=== PATIENT | female | born 1935 | race Caucasian/White ===

== ENCOUNTER 2017-07-03 13:57 | Inpatient (IN) | payer OTHER ==
[~2017-07-03] VITALS: Ht 165.1 cm; Wt 67.1 kg
[2017-07-03] MEDS ORDERED: BISACODYL SUPP10 MG RECTAL (13:59)
[2017-07-03] MEDS ORDERED: MILK OF MA2400 MG/10 PO (13:59)
[2017-07-03] MEDS ORDERED: FLEET ENEMA133 ML PO (14:00)
[2017-07-03 14:01] VITALS: BP 122/75
[2017-07-03] MEDS ORDERED: LASIX 40 MG TAB40 M2 PO (14:01)
[2017-07-03] MEDS ORDERED: MIRALAX17 GM PO (14:01)
[2017-07-03] MEDS ORDERED: PRAVACHOL40 MG PO (14:01)
[2017-07-03] MEDS ORDERED: TYLENOL325 MG PO (14:01)
[2017-07-03] MEDS ORDERED: ELIQUIS5 MG PO (14:02)
[2017-07-03] MEDS ORDERED: PROTONIX40 M1 PO (14:02)
[2017-07-03] MEDS ORDERED: IRON325 PO (14:02)
[2017-07-03] MEDS ORDERED: OXYCONTIN10 M1 PO (14:03)
[2017-07-03] MEDS ORDERED: SYNTHROID75 MCG PO (14:04)
[2017-07-03] MEDS ORDERED: HYDROCORTISONE30 G9 TOP (14:04)
[2017-07-03] MEDS ORDERED: TOPROL XL100 MG PO (14:04)
[2017-07-03] MEDS ORDERED: VITAMIN C500 M2 PO (14:05)
[2017-07-03] MEDS ORDERED: LACTULOSE20 GM/30 M PO (14:05)
[2017-07-03] MEDS ORDERED: CENTRUM SILVER1 EAC2 PO (14:05)
[2017-07-03] MEDS ORDERED: MELATONIN3 MG PO (14:06)
[2017-07-03] MEDS ORDERED: MICONAZOLE NITR45 G3 TOP (14:07)
[2017-07-03 14:51] LABS: ABSOLUTE BASOPHILS 0.1 thou/uL (0.0-0.2); ABSOLUTE EOSINOPHILS 0.3 thou/uL (0.0-0.7); ABSOLUTE LYMPHOCYTES 1.8 thou/uL (0.8-5.3); ABSOLUTE MONOCYTES 0.6 thou/uL (0.0-1.2); ABSOLUTE NEUTROPHILS 4.3 thou/uL (1.6-8.1); BASOPHILS 0.9 %; EOSINOPHILS 4.8 %; HEMATOCRIT 35.4 % (37.0-47.0); HEMOGLOBIN 11.4 gm/dL (12.0-15.0); LYMPHOCYTES 25.5 %; MCHC 32.3 g/dL (28.0-37.0); MCV 89.6 fL (80.0-100.0); MONOCYTES 8.9 %; NUCLEATED RBCS 0 /100WBC; PLATELET COUNT* 308 thou/uL (150-400); POLYS 59.9 %; RBC 3.95 mil/uL (4.20-5.00); RDW-CV 33.4 % (10.5-14.5); WBC 7.2 thou/uL (4.0-11.0)
[2017-07-03 14:54] LABS: ANION GAP 8 mmol/L (7-16); BUN 25 mg/dL (7-18); CALCIUM 8.8 mg/dL (8.5-10.1); CHLORIDE 99 mmol/L (98-107); CO2 31 mmol/L (21-32); CREATININE 0.8 mg/dL (0.6-1.3); GLUCOSE 136 mg/dL (70-99); POTASSIUM 3.7 mmol/L (3.5-5.1); SODIUM 138 mmol/L (136-145)
[2017-07-03 15:01] LABS: ALBUMIN 3.5 g/dL (3.4-5.0); ALKALINE PHOSPHATASE 87 U/L (46-116); SGOT 24 U/L (15-37); SGPT 16 U/L (30-65); TOTAL BILIRUBIN 0.8 mg/dL (<0.1-1.0); TOTAL PROTEIN 7.6 g/dL (6.4-8.2); TROPONIN-I LEVEL <0.06 ng/mL (<0.06)
[2017-07-03 16:03] LABS: PLATELET ESTIMATE ADEQUATE
[2017-07-03 16:05] LABS: POIKILOCYTOSIS 1+
[2017-07-03 16:06] LABS: ANISOCYTOSIS 3+; HYPOCHROMASIA Occasional
[2017-07-03 16:07] LABS: MICROCYTES Occasional; OVALOCYTES 1+
[2017-07-03 16:08] LABS: POLYCHROMASIA Occasional
--- NOTE | 2017-07-03 17:20 | EKG ---
[place] [address] ELECTROCARDIOGRAM REPORT Name: ELISEO FONTANEZ Room: [place] [address] ADM IN [facility]#: [id number] Admission: 07/03/17 Attend Phys: Nazanin Samaniego Discharge: Date of : 39 Report #: [id number] THIS REPORT FOR: //name// [facility] ED Test Date: 2017-07-03 Test Time: 13:59:11 Pat Name: ELISEO FONTANEZ Department: Room: Gender: F Supervisor [employer]: [place] : 1935 Requested By: Peggy Ruvalcaba Order Number: [id number] MD: Arnulfo Vazquez Measurements Intervals [place] Rate: 105 P: SC: QRS: -55 QRSD: 108 T: 25 QT: 351 QTc: 465 Interpretive Statements Atrial fibrillation Left anterior fascicular block Abnormal R-wave progression, late transition No previous ECG available for comparison Electronically Signed On 07-03-2017 17:20:32 CDT by Arnulfo Vazquez [email or web address] <ELECTRONICALLY SIGNED> By: Arnulfo Vazquez MD, [facility] 07/03/17 1720 1359 1359 Arnulfo Vazquez MD, FAC /EPI
[2017-07-03 18:07] VITALS: BP 122/75
[2017-07-03 18:30] VITALS: BP 115/51
[2017-07-03 20:00] VITALS: BP 110/71
[2017-07-03 23:48] VITALS: BP 111/67
[2017-07-04 03:29] VITALS: BP 112/54
[2017-07-04 07:30] VITALS: BP 107/54
[2017-07-04 12:14] VITALS: BP 114/69
[2017-07-04 15:48] VITALS: BP 104/34
--- NOTE | 2017-07-04 16:06 | 2DMMODE ---
[place] [address] 2 D/M-MODE ECHOCARDIOGRAM Name: ELISEO FONTANEZ Room: [address] IN [facility]#: [id number] Admission: 07/03/17 Attend Phys: Zafar Gregg Discharge: Date of : 39 Date of Service: 07/04/17 1606 Report #: [id number] THIS REPORT FOR: //name// APPROVED REPORT Study performed: 07/04/2017 10:33:06 EXAM: Comprehensive 2D, Doppler, and color-flow Echocardiogram Patient Location: In-Patient Room #: 201 Status: routine BSA: 1.74 HR: 88 bpm BP: 112/54 mmHg Rhythm: Atrial Fibrillation Other Information Study Quality: Good Indications Congestive Heart Failure Atrial Fibrillation 2D Dimensions LVEF(%): 79.49 (>50%) IVSd: 14.09 (7-11mm) LVOT Diam: 18.28 (18-24mm) LVDd: 33.78 mm PWd: 13.38 (7-11mm) Ascending Ao: 29.52 (22-36mm) LVDs: 17.90 (25-40mm) Aortic Root: 28.86 mm Rodriguez's LVEF: 79.49 % Volumes Left Atrial Volume (Systole) LA ESV Index: 40.20 mL/m2 Aortic Valve AoV Peak Mirza.: 3.62 m/s AO Peak Gr.: 52.47 mmHg LVOT Max P.57 mmHg AO Mean Gr.: 32.53 mmHg LVOT Mean P.18 mmHg LVOT Max V: 1.07 m/s AO V2 VTI: 76.44 cm LVOT Mean V: 0.68 m/s ALEIDA (VTI): 0.76 cm2 LVOT V1 VTI: 22.09 [place] [address] 2 D/M-MODE ECHOCARDIOGRAM Name: ELISEO FONTANEZ Room: [address] IN ..#: [id number] Admission: 07/03/17 Attend Phys: Zafar Gregg Discharge: Date of : 39 Date of Service: 07/04/17 1606 Report #: [id number] MV Mean Gr.: 6.24 mmHg E/A Ratio: 2.40 MV Decel. Time: 161.02 ms MV E Max Mirza.: 2.00 m/s MV PHT: 46.70 ms MVA (PHT): 4.71 cm2 TDI E/Lateral E': 22.22 E/Medial E': 33.33 Medial E' Mirza.: 0.06 m/s Lateral E' Mirza.: 0.09 m/s Pulmonary Valve PV Peak Mirza.: 1.05 m/s PV Peak Gr.: 4.37 mmHg Tricuspid Valve TR Peak Gr.: 35.70 mmHg RVSP: 40.00 mmHg Left Ventricle The left ventricle is normal size. There is normal LV segmental wall motion. Moderate concentric left ventricular hypertrophy. Left ventricular systolic function is normal. The left ventricular ejection fraction is within the normal range. LVEF is 65%. This study is not technically sufficient to allow evaluation of the LV diastolic function due to atrial fibrillation. Right Ventricle Right ventricle is borderline dilated. The right ventricular systolic function is normal. Atria Left atrium is moderately dilated. Right atrium is mildly dilated. Aortic Valve Severe aortic valve sclerosis. Trace aortic regurgitation. Moderate to severe aortic stenosis. Mitral Valve Severe mitral annular calcification. Mild mitral regurgitation. No evidence of mitral valve stenosis. Tricuspid Valve The tricuspid valve is normal in structure. Moderate tricuspid regurgitation. The RVSP is 40-45 [place] [address] 2 D/M-MODE ECHOCARDIOGRAM Name: ELISEO FONTANEZ Room: [address]#: [id number] Admission: 07/03/17 Attend Phys: Zafar Gregg Discharge: Date of : 39 Date of Service: 07/04/17 1606 Report #: [id number] The pulmonary valve is normal in structure. Mild pulmonic regurgitation. Great Vessels The aortic root is normal in size. IVC is normal in size and collapses with >50% inspiration Pericardium There is no pericardial effusion. <Conclusion> The left ventricle is normal size. Moderate concentric left ventricular hypertrophy. Left ventricular systolic function is normal. The left ventricular ejection fraction is within the normal range. LVEF is 65%. This study is not technically sufficient to allow evaluation of the LV diastolic function due to atrial fibrillation. Left atrium is moderately dilated. Right atrium is mildly dilated. Severe aortic valve sclerosis. Trace aortic regurgitation. Moderate to severe aortic stenosis. Severe mitral annular calcification. Mild mitral regurgitation. Moderate tricuspid regurgitation. The RVSP is 40-45 mmHg. IVC is normal in size and collapses with >50% inspiration There is no pericardial effusion. There is normal LV segmental wall motion. <ELECTRONICALLY SIGNED> By: Lance Peña MD, FACC 07/04/17 1606 1606 1606 Lance Peña MD, FACC /INF
[2017-07-04 20:00] VITALS: BP 105/54
[2017-07-05] VITALS: BP 113/56
[2017-07-05 04:00] VITALS: BP 111/71
[2017-07-05 08:00] VITALS: BP 120/74
[2017-07-05 11:45] VITALS: BP 104/59
--- NOTE | 2017-07-05 16:55 | CARDNUC ---
[place] [address] CARDIAC NUCLEAR IMAGING REPORT Name: ELISEO FONTANEZ Room: [address] IN [facility]#: [id number] Admission: 07/03/17 Attend Phys: Zafar Gregg Discharge: Date of : 39 Date of Service: 07/05/17 1654 Report #: [id number] THIS REPORT FOR: //name// APPROVED REPORT Study performed: 07/05/2017 08:24:00 Exam: Nuclear Stress Test Indication: chest pain, chf, a fib Patient Location: In-Patient Room #: 201 Stress Tech: Adilia Vazquez Stress Nurse: Jenn Otoole RN Ht: 5 ft 5 in Wt: 150 lbs BSA: 1.75 m2 BMI: 24.95 Medical History Medical History: cad, pci, chf, a fib Medications: apixaban, furosemide, metoprolol, atorvastatin Allergies: penicillin, sulfa, iodine, codeine, erythromycin Cardiac Risk Factors: age, hyperlipidemia, hypertension, family hx Previous Cardiac Procedures: pci with stent Exercise History: Sedentary Meds Held (24 hrs): metoprolol Stress Test Details Stress Test: Pharmacologic stress testing performed using 0.4 mg of regadenoson per 5 mL given IV over 10 seconds. Reason for pharmacologic stress test: physical limitation. Reversal agent Aminophyline 50 mg, given intravenously for tachycardia. HR Resting HR: 96 bpm Max Heart Rate (APMHR): 141 bpm Max HR Achieved: 132 bpm Target HR (85% APMHR): 119 bpm % of APMHR: 93 Recovery HR: 119 bpm HR response to stress: Normal HR response to stress BP Resting BP: 102/73 mmHg Max BP: 129/63 [place] [address] CARDIAC NUCLEAR IMAGING REPORT Name: ELISEO FONTANEZ Room: [address]#: [id number] Admission: 07/03/17 Attend Phys: Zafar Gregg Discharge: Date of : 39 Date of Service: 07/05/17 1654 Report #: [id number] BP response to stress: Normal blood pressure response to stress. ECG Resting ECG: afib Stress ECG: Atrial Fibrillation ST Change: None Recovery ECG: afib Recovery ST Change: None Clinical Reason for Termination: Completed protocol Stress Symptoms: none Exercise duration: 0 min sec Exercise capacity: 1 METs Functional Aerobic Impairment 94% Stress ECG Conclusion no ecg changes NM EXAM: Myocardial Perfusion REST/STRESS Imaging Protocol: Rest Tc-99m/Stress Tc-99m 1 day Resting Data Rest SPECT myocardial perfusion imaging was performed in supine position 30 minutes following the intravenous injection of 10.1 mCi of Tc-99m Sestamibi. Time of rest injection: 1355 The images were gated to evaluate regional wall motion and calculate left ventricular ejection fraction. Administration Route: IV Administration Site: Left Wrist Pharmacologic Stress Pharmacologic stress test was performed by injecting Regadenoson 0.4 mg IV push followed by the intravenous injection of 36.0 mCi of Tc-99m Sestamibi. Time of stress injection: 1520 Administration Route: IV Administration Site: Left Wrist Heart Rate at time of stress injection: 132 bpm. Gated Stress SPECT was performed 40 minutes after stress injection. The images were gated to evaluate regional wall motion and calculate left ventricular ejection fraction[place] [address] CARDIAC NUCLEAR IMAGING REPORT Name: ELISEO FONTANEZ Room: [address] IN [facility]#: [id number] Admission: 07/03/17 Attend Phys: Zafar Gregg Discharge: Date of : 39 Date of Service: 07/05/17 1654 Report #: [id number] Study: Fair Artifact: Moderate Increased GI uptake Lung Uptake: Normal Study Data At rest, the left ventricular ejection fraction was 70%.. Post stress, the left ventricular ejection was >75%.. SSS: 0 SRS: 0 SDS: 0 TID = 1.03. Perfusion The SPECT images reveal a diffuse mild reduction of tracer uptake in all segments, on stress dataset only, which has on the rotating images more motion and gut uptake. The rest SPECT images are normal. No prone images were able to be obtained.Likely the perfusion abnormalith is artifact. Images were reviewed using [employer]. Wall Motion normal in all segments Nuclear Conclusion ECG Findings: negative for ischemia Clinical Findings: negative for ischemia Nuclear Findings: negative for ischemia Exercise Capacity: not assessed Left Ventricular Function: normal Risk Study: low Negative perfusion nuclear stress test for ischemia, defects are present but likely due to artifact. <Conclusion> no ecg changes <ELECTRONICALLY SIGNED> By: Steven Choudhary MD, FACC 07/05/17 1654 53 165 Steven Choudhary MD, FACC /INF
[2017-07-05 20:00] VITALS: BP 93/51
[2017-07-06] VITALS: BP 103/62
[2017-07-06 04:00] VITALS: BP 125/54
[2017-07-06 09:00] VITALS: BP 100/62
[2017-07-06 12:22] VITALS: BP 102/53
[2017-07-06 16:07] VITALS: BP 117/71
[2017-07-06 20:00] VITALS: BP 117/63
[2017-07-07 00:39] VITALS: BP 98/63
[2017-07-07 04:23] VITALS: BP 103/46
[2017-07-07 07:30] VITALS: BP 126/74
[2017-07-07 12:29] VITALS: BP 120/77
[2017-07-07 17:24] VITALS: BP 119/68
[2017-07-07 20:00] VITALS: BP 113/56
[2017-07-08] VITALS: BP 121/73
[2017-07-08 04:00] VITALS: BP 113/66
[2017-07-08 07:30] VITALS: BP 118/72
[2017-07-08 15:07] VITALS: BP 96/63
[2017-07-08 20:00] VITALS: BP 109/75
[2017-07-09 08:00] VITALS: BP 103/67
[2017-07-09 11:29] LABS: CALCIUM 8.9 mg/dL (8.5-10.1); CREATININE 0.7 mg/dL (0.6-1.3)
[2017-07-09 17:33] VITALS: BP 109/67
[2017-07-09 20:00] VITALS: BP 112/62
[2017-07-10 04:30] LABS: CALCIUM 8.5 mg/dL (8.5-10.1); CREATININE 0.6 mg/dL (0.6-1.3); POTASSIUM 3.7 mmol/L (3.5-5.1)
[2017-07-10 08:00] VITALS: BP 116/46
== END 2017-07-10 16:45 | DRG 308 ==
LOC: M.ERS 13:57 → M.2W 16:07 → M.TBA-ER 16:07 → M.2W 18:01 → M.ORTHSURG 07-08 14:40
PROVIDERS: Nurse Practitioner Family; Personal Emergency Response Attendant; ADMIT Internal Medicine
DX: I48.2 Chronic atrial fibrillation (principal); I50.33 Acute on chronic diastolic (congestive) heart failure; D68.69 Other thrombophilia; I07.1 Rheumatic tricuspid insufficiency; I35.0 Nonrheumatic aortic (valve) stenosis; I05.0 Rheumatic mitral stenosis; Z88.0 Allergy status to penicillin; Z88.2 Allergy status to sulfonamides; Z88.6 Allergy status to analgesic agent; Z88.1 Allergy status to other antibiotic agents; Z91.041 Radiographic dye allergy status; Z79.01 Long term (current) use of anticoagulants; Z79.899 Other long term (current) drug therapy

== ENCOUNTER 2018-10-10 10:32 | Inpatient (IN) | payer OTHER ==
[~2018-10-10] VITALS: Ht 160 cm; Wt 67.7 kg
[~2018-10-10 10:32] MED LIST: BISACODYL SUPP10 MG RECTAL; CENTRUM SILVER1 EAC2 PO; ELIQUIS5 MG PO; FLEET ENEMA133 ML PO; HYDROCORTISONE30 G9 TOP; IRON325 PO; LACTULOSE20 GM/30 M PO; LASIX 40 MG TAB40 M2 PO; MELATONIN3 MG PO; MICONAZOLE NITR45 G3 TOP; MILK OF MA2400 MG/10 PO; MIRALAX17 GM PO; OXYCONTIN10 M1 PO; PRAVACHOL40 MG PO; PROTONIX40 M1 PO; SYNTHROID75 MCG PO; TOPROL XL100 MG PO; TYLENOL325 MG PO; VITAMIN C500 M2 PO
[2018-10-10 10:33] VITALS: BP 101/64
[2018-10-10] MEDS ORDERED: IPRAT-ALBUT 0.5-3 ML INH (10:43)
[2018-10-10] MEDS ORDERED: DOXYCYCLINE 10100 MG PO (10:44)
[2018-10-10] MEDS ORDERED: BUMETANIDE 1 MG1 M1 PO (10:46)
[2018-10-10] MEDS ORDERED: NYSTATIN100000 UNI SW&SWALLOW (10:51)
[2018-10-10] MEDS ORDERED: OMEPRAZOLE 20 M20 M1 PO (10:51)
[2018-10-10] MEDS ORDERED: XARELTO15 MG PO (10:52)
[2018-10-10 10:57] LABS: HEMOGLOBIN 10.2 gm/dL (12.0-15.0); MCH 25.4 pg (26.0-34.0)
[2018-10-10 11:00] LABS: ABSOLUTE BASOPHILS 0.1 thou/uL (0.0-0.2); ABSOLUTE EOSINOPHILS 0.2 thou/uL (0.0-0.7); ABSOLUTE LYMPHOCYTES 1.5 thou/uL (0.8-5.3); ABSOLUTE NEUTROPHILS 6.5 thou/uL (1.6-8.1); BASOPHILS 1.4 %; EOSINOPHILS 2.5 %; HEMATOCRIT 32.4 % (37.0-47.0); LYMPHOCYTES 15.5 %; MCHC 31.6 g/dL (28.0-37.0); MCV 80.3 fL (80.0-100.0); MONOCYTES 10.7 %; MPV 7.6 fl. (7.2-11.1); NUCLEATED RBCS 0 /100WBC; PLATELET COUNT* 414 thou/uL (150-400); POLYS 69.9 %; RBC 4.04 mil/uL (4.20-5.00); RDW-CV 22.8 % (10.5-14.5); WBC 9.4 thou/uL (4.0-11.0)
[2018-10-10 11:08] LABS: ANION GAP 7 mmol/L (7-16); BUN 19 mg/dL (7-18); CALCIUM 8.1 mg/dL (8.5-10.1); CHLORIDE 102 mmol/L (98-107); CO2 25 mmol/L (21-32); CREATININE 0.8 mg/dL (0.6-1.3); GLUCOSE 93 mg/dL (70-99); INR 1.3; POTASSIUM 4.3 mmol/L (3.5-5.1); SODIUM 134 mmol/L (136-145)
[2018-10-10 11:19] LABS: ALBUMIN 2.9 g/dL (3.4-5.0); ALKALINE PHOSPHATASE 89 U/L (46-116); LIPASE 221 U/L (73-393); MAGNESIUM 1.6 mg/dL (1.8-2.4); NT-PRO BRAIN NAT PEPTIDE 3515 pg/mL (<300); SGOT 39 U/L (15-37); SGPT 29 U/L (30-65); TOTAL BILIRUBIN 0.5 mg/dL (<0.1-1.0); TOTAL PROTEIN 6.9 g/dL (6.4-8.2); TROPONIN-I LEVEL <0.06 ng/mL (<0.06)
[2018-10-10 14:26] VITALS: BP 106/55
[2018-10-10 14:30] VITALS: BP 119/45
[2018-10-10] MEDS ORDERED: SYNTHROID25 MC1 PO (15:16)
--- NOTE | 2018-10-10 18:03 | 2DMMODE ---
[place] [address] 2 D/M-MODE ECHOCARDIOGRAM Name: ELISEO FONTANEZ Room: [address] IN [facility]#: [id number] Admission: 10/10/18 Attend Phys: Zafar Gregg Discharge: Date of : 39 Date of Service: 10/10/18 180 Report #: [id number] THIS REPORT FOR: //name// APPROVED REPORT Study performed: 10/10/2018 15:46:12 EXAM: Comprehensive 2D, Doppler, and color-flow Echocardiogram Patient Location: In-Patient Room #: [facility] Status: routine BSA: 1.71 HR: 65 bpm BP: 106/55 mmHg Rhythm: Atrial Fibrillation Other Information Study Quality: Good Indications Atrial Fibrillation Chest Pain 2D Dimensions IVSd: 12.37 (7-11mm) LVOT Diam: 16.40 (18-24mm) LVDd: 29.88 mm PWd: 11.79 (7-11mm) Ascending Ao: 29.83 (22-36mm) LVDs: 18.24 (25-40mm) Aortic Root: 30.19 mm Volumes Left Atrial Volume (Systole) LA ESV Index: 47.50 mL/m2 Aortic Valve AoV Peak Mirza.: 3.75 m/s AO Peak Gr.: 56.19 mmHg LVOT Max P.09 mmHg AO Mean Gr.: 36.52 mmHg LVOT Mean P.81 mmHg LVOT Max V: 0.88 m/s AO V2 VTI: 88.79 cm LVOT Mean V: 0.64 m/s ALEIDA (VTI): 0.47 cm2 LVOT V1 VTI: 19.77 cm TDI Medial E' Mirza.: 0.05 m/s Lateral E' Mirza.: 0.06 m/[place] [address] 2 D/M-MODE ECHOCARDIOGRAM Name: ELISEO FONTANEZ Room: [address] IN [facility]#: [id number] Admission: 10/10/18 Attend Phys: Zafar Gregg Discharge: Date of : 39 Date of Service: 10/10/18 1802 Report #: [id number] Pulmonary Valve PV Peak Mirza.: 1.11 m/s PV Peak Gr.: 4.96 mmHg Tricuspid Valve RAP Estimate: 5.00 mmHg TR Peak Gr.: 54.58 mmHg RVSP: 59.00 mmHg PA Pressure: 59.00 mmHg Left Ventricle The left ventricle is normal size. There is normal LV segmental wall motion. Mild concentric left ventricular hypertrophy. Left ventricular systolic function is normal. LVEF is 65-70%. This study is not technically sufficient to allow evaluation of the LV diastolic function due to atrial fibrillation. Right Ventricle Right ventricle is mildly dilated. The right ventricular systolic function is normal. Atria Left atrium is severely dilated. Right atrium is moderately dilated. Aortic Valve Severe aortic valve sclerosis. No aortic regurgitation is present. Severe aortic stenosis. Mitral Valve Moderate mitral annular calcification. Mild mitral regurgitation. No evidence of mitral valve stenosis. Tricuspid Valve The tricuspid valve is normal in structure. Moderate tricuspid regurgitation. Moderate pulmonary hypertension. Pulmonic Valve The pulmonary valve is normal in structure. Mild pulmonic regurgitation. Great Vessels The aortic root is normal in size. IVC is normal in size and collapses >50% with inspiration. Pericardium There [place] [address] 2 D/M-MODE ECHOCARDIOGRAM Name: ESTEEELISEO Marianne Room: [address] IN [facility].#: [id number] Admission: 10/10/18 Attend Phys: Zafar Gregg Discharge: Date of : 39 Date of Service: 10/10/18 1802 Report #: [id number] <Conclusion> The left ventricle is normal size. Mild concentric left ventricular hypertrophy. Left ventricular systolic function is normal. LVEF is 65-70%. There is normal LV segmental wall motion. Right ventricle is mildly dilated. Left atrium is severely dilated. Right atrium is moderately dilated. Severe aortic valve sclerosis. Severe aortic stenosis. Moderate mitral annular calcification. Mild mitral regurgitation. Moderate tricuspid regurgitation. Moderate pulmonary hypertension. Mild pulmonic regurgitation. IVC is normal in size and collapses >50% with inspiration. <ELECTRONICALLY SIGNED> By: Sammy Murphy MD, FACC 10/10/181801 01 01 Sammy Murphy MD, FACC /INF
--- NOTE | 2018-10-10 18:11 | NUR ---
PT ARRIVED TO ROOM 228 AT APPROX 1410, PT VERY DROWSY ON ARRIVAL. WAS ABLE TO DO ADMISSION, PT NOT A VERY GOOD HISTORIAN THOUGH. PT DENIES PAIN BUT STATES "I WONDER WHAT IS WRONG WITH ME". PT INCONTINANT OF URINE. ON 2L PER PROTOCOL. AFIB ON THE MONITOR. FALL PRECAUTIONS IN PLACE. WILL CONTINUE WITH PLAN OF CARE.
[2018-10-10 20:00] VITALS: BP 118/68
[2018-10-10 22:07] LABS: URINE BILIRUBIN NEGATIVE (Negative); URINE BLOOD 2+ (Negative); URINE CLARITY CLEAR; URINE COLOR YELLOW; URINE GLUCOSE-RANDOM NEGATIVE (Negative); URINE KETONES NEGATIVE (Negative); URINE LEUKOCYTES 2+ (Negative); URINE NITRITE POSITIVE (Negative); URINE PROTEIN NEGATIVE (Negative)
[2018-10-10 22:23] LABS: SQUAMOUS 0-3 Few /LPF (0-3)
[2018-10-10 22:24] LABS: BACTERIA >30 Many /HPF (None Seen); CASTS None Seen /LPF (None Seen); CRYSTALS None Seen /LPF (None Seen); URINE RBC 0-2 Rare /HPF (0-2); URINE WBC 6-15 Few /HPF (0-5)
[2018-10-11] VITALS: BP 94/50
[2018-10-11 04:00] VITALS: BP 104/47
--- NOTE | 2018-10-11 07:32 | NUR ---
PT WAS ABLE TO REST THROUGH THE NIGHT. NO C/O PAIN UNTL DURING REPORT THIS AM C/O CHEST PAIN AND SOA. DAY RN NOTIFIED. TRACING AFIB WITH PVCS THROUGH THE NIGHT. SEE EMAR AND CHARTING. CALL LIGHT IN REACH/ HOURLY ROUNDNG FOR SAFETY.
[2018-10-11 08:00] VITALS: BP 113/57
[2018-10-11 10:25] LABS: CALCIUM 8.9 mg/dL (8.5-10.1); CREATININE 0.8 mg/dL (0.6-1.3); MAGNESIUM 1.9 mg/dL (1.8-2.4); POTASSIUM 4.7 mmol/L (3.5-5.1)
--- NOTE | 2018-10-11 11:09 | EKG ---
[place] [address] ELECTROCARDIOGRAM REPORT Name: ELISEO FONTANEZ Room: [address] ADM IN [facility].#: [id number] Admission: 10/10/18 Attend Phys: Nazanin Samaniego Discharge: Date of : 39 Report #: [id number] THIS REPORT FOR: //name// [facility] ED Test Date: 2018-10-10 Test Time: 10:37:04 Pat Name: ELISEO FONTANEZ Department: Room: [facility] Gender: F Director Educational Radio: : 1935 Requested By: Yanick Vail Order Number: [id number] MD: Arnulfo Vazquez Measurements Intervals [place] Rate: 90 P: [place]: QRS: -56 QRSD: 112 T: 19 QT: 383 QTc: 469 Interpretive Statements Atrial fibrillation left anterior fasicular block Compared to ECG 07/03/2017 13:59:11 rate slowed Electronically Signed On 10-11-2018 11:09:22 CDT by Arnulfo Vazquez [email or web address] <ELECTRONICALLY SIGNED> By: Arnulfo Vazquez MD, [facility] 10/11/18 1109 1037 1037 Arnulfo Vazquez MD, FACC /EPI
--- NOTE | 2018-10-11 12:19 | NUR ---
Nutrition: Pt assessed for pressure ulcer risk. Albumin 2.9. RD ordered Beneprotein for added nutrition. Admitted with chest pain, afib. H/o CHF. Current UTI, on Cipro. GOALS: good protein intake, good hydration for UTI. Mild risk.
[2018-10-11 12:24] VITALS: BP 104/63
--- NOTE | 2018-10-11 12:29 | NUR ---
MET WITH PT TO DISCUSS HOME SITUATION/DC PLANNING. PT NORMALLY LIVES WITH SPOUSE. SHE WAS ADMITTED FROM [facility]. PER BELÉN/JAIME, PT HAS BEEN THERE FOR A FEW DAYS, WAS ADMITTED FROM [place]. PLAN IS FOR PT TO RETURN TO [facility] [place]. PT HAS SOME CONFUSION. NO FAMILY IN ROOM AT THIS TIME. NO DPOA ON CHART. CM TO FOLLOW. FAXED CLINICAL TO [facility], THEY WILL NEED TO GET INSURANCE AUTH PRIOR TO DC TO SNF
--- NOTE | 2018-10-11 15:19 | EKG ---
[place] [address] ELECTROCARDIOGRAM REPORT Name: ELISEO FONTANEZ Room: [address] ADM IN .R.#: [id number] Admission: 10/10/18 Attend Phys: Nazanin Samaniego Discharge: Date of : 39 Report #: [id number] THIS REPORT FOR: //name// [facility] Test Date: 2018-10-11 Test Time: 14:37:14 Pat Name: ELISEO FONTANEZ Department: Room: [address] Gender: F Medical Director/Head Team Physician: : 1935 Requested By: Zafar Gregg Order Number: [id number] MD: Arnulfo Vazquez Measurements Intervals [place] Rate: 76 P: MD: QRS: -52 QRSD: 108 T: 37 QT: 400 QTc: 450 Interpretive Statements Atrial fibrillation left anterior fasicular block Compared to ECG 10/10/2018 10:37:04 no change Electronically Signed On 10-11-2018 15:19:40 CDT by Arnulfo Vazquez [email or web address] <ELECTRONICALLY SIGNED> By: Arnulfo Vazquez MD, [facility] 10/11/18 1519 1437 1437 Arnulfo Vazquez MD, FAC /EPI
[2018-10-11 15:29] LABS: CALCIUM 8.6 mg/dL (8.5-10.1); CREATININE 0.9 mg/dL (0.6-1.3); POTASSIUM 4.5 mmol/L (3.5-5.1); TOTAL BILIRUBIN 0.5 mg/dL (<0.1-1.0); TOTAL PROTEIN 7.1 g/dL (6.4-8.2)
[2018-10-11 15:50] VITALS: BP 101/51
[2018-10-11 20:00] VITALS: BP 110/61
[2018-10-12] VITALS: BP 98/52
[2018-10-12 04:00] VITALS: BP 103/61
[2018-10-12 08:00] VITALS: BP 111/65
--- NOTE | 2018-10-12 11:32 | NUR ---
Following for d/c planning needs. Reviewed chart and spoke with nurse, physician and brand coordinator at [facility]. [facility] admissions will seek auth from insurance for return today. Faxed referral. Will await return call re: bed availability and acceptance.
[2018-10-12 12:00] VITALS: BP 88/49
[2018-10-12 17:45] VITALS: BP 95/52
--- NOTE | 2018-10-12 18:17 | NUR ---
PT AFIB WITH PVC'S AND MURMURS NOTED THIS SHIFT. PT HAS COUGH NOTED AND COARSE LUNG SOUNDS THIS SHIFT. PT EDUCATED ON HOW TO USE IS AND ONE WAS PROVIDED AND LEFT AT HER BEDSIDE. PT EDUCATED TO SPIT OUT ANY PRODUCTIVE COUGH MUCUS POSSIBLE. PT IV PATENT AND INTACT AT THIS TIME. PT UP TO BATHROOM THIS SHIFT WITH THERAPY THIS SHIFT BUT NEEDS THE ASSISTANCE OF UP WITH 2 AND IS NOW USING BSC AND WALKER FOR SAFETY REASONS. PT HAS SCRATCH ON BOTTOM NOTED THIS SHIFT. PT USING O2 AT 2L PER NC FOR COMFORT. PT TOLERATING DIET AND HAS NOT HAD C/O PAIN THIS SHIFT. PT HAS SOME INCONTINENCE AND A BRIEF WAS REQUESTED BY PT. HOURLY ROUNDING MAINTAINED THIS SHIFT. WILL CONTINUE TO MONITOR AND ASSESS
[2018-10-12 23:45] VITALS: BP 115/43
[2018-10-13 03:30] VITALS: BP 101/56
--- NOTE | 2018-10-13 06:30 | NUR ---
PT A&O X3. FORGETFUL. VSS ON 2L. SAT WAS 100% ON 2L. I TURNED O2 DOWN TO 1L. PT SATTING FINE. ASSESSMENT DOCUMENTED. FALL PRECAUTION IN PLACE. MEDS GIVEN PER EMAR. RW SL. CALL LIGHT WITHIN REACH. HOURLY ROUNDINGS MADE. ANTICIPATED DC TO [facility] TODAY. WILL CONTINUE TO MONITOR.
[2018-10-13 11:27] VITALS: BP 96/46
[2018-10-13 15:43] VITALS: BP 103/45
[2018-10-13 20:00] VITALS: BP 108/48
[2018-10-14] VITALS: BP 101/61
[2018-10-14 04:00] VITALS: BP 118/47
--- NOTE | 2018-10-14 05:46 | NUR ---
ASSUMED CARE OF PT AFTER REPORT AT 1930. PT A&OX3. FORGETFUL. VSS. PHYSICAL ASSESSMENT COMPLETED AND CHARTED. PT ON O2 AT 2L NC. PT TRACING AFIB ON TELE. PT UPWITH 1 ASSIST TO BSC. PT WITH EPISODES OF INCONTINENT BLADDER. PT TURNED TO SIDES. PT COMPLAINED OF BACK PAIN BUT REFUSED MEDS. PT ABLE TO SLEEP WELL ON BED. CALL LIGHT WITHIN REACH,
[2018-10-14 08:00] VITALS: BP 99/40
--- NOTE | 2018-10-14 10:55 | CON ---
[facility] [address] [place] [address] CONSULTATION Name: ELISEO FONTANEZ Room: [address] IN [facility]#: [id number] Admission: 10/10/18 Attend Phys: Nazanin Samaniego Discharge: Date of : 39 Report #: [id number] THIS REPORT FOR: //name// CC: Lance Gregg CARDIOLOGY CONSULT INDICATION: Chest pain. HISTORY OF PRESENT ILLNESS: The patient is an 82-year-old white female who was transferred from [facility] for evaluation of chest pain. She is a poor historian. She apparently describes sharp, 10/10 chest discomfort with right upper quadrant discomfort, nausea and weakness. The patient had recent cardiac catheterization at [facility] where she was discovered to have moderate proximal LAD disease. A followup catheterization in an attempt to do FFR of this region was interrupted due to an episode of acute diastolic heart failure. The patient has severe/critical aortic stenosis. The patient had a balloon valvuloplasty of the aortic valve. The valve area prior to procedure was 0.32 cm2 consistent with critical aortic stenosis. Post procedure, the valve area was calculated to be 0.52 cm2, still consistent with severe aortic stenosis. At the time of my interview, the patient states she is still having some chest discomfort on direct questioning, possibly worse with deep inspiration. An echocardiogram today showed normal LV systolic function. She has dilated right and left atria as well as right ventricle. She has severe aortic stenosis. She has significant mitral annular calcification without mitral valvular stenosis. PAST MEDICAL HISTORY: Includes at least: 1. Severe aortic stenosis. 2. Diastolic heart failure. 3. Hypertension. 4. Hyperlipidemia. 5. Hypothyroidism. 6. Aortic valvuloplasty. 7. Appendectomy. 8. Chronic atrial fibrillation. 9. Chronic anticoagulation. FAMILY HISTORY: Apparently positive for heart disease in the brother and father. SOCIAL HISTORY: The patient is . She does not smoke. [place] [address] CONSULTATION Name: ELISEO FONTANEZ Room: [address]#: [id number] Admission: 10/10/18 Attend Phys: Nazanin Samaniego Discharge: Date of : 39 Report #: [id number] ALLERGIES: MULTIPLE ALLERGIES INCLUDING PENICILLIN, SULFA, IODINE, STRAWBERRIES, CODEINE, BACTRIM, RED DYE, SHELLFISH. HOME MEDICATIONS: Tylenol p.r.n., bisacodyl p.r.n., Bumex 1 mg p.o. daily, doxycycline 100 mg b.i.d., Combivent inhaler t.i.d., Synthroid 0.075 mg daily, Milk of Magnesia daily, metoprolol succinate 100 mg daily, Nystatin swish and swallow q.i.d., omeprazole 20 mg daily, pravastatin 40 mg daily, Xarelto 15 mg with dinner. REVIEW OF SYSTEMS: A 14-point review of systems is positive for chest discomfort, dyspnea on exertion, heart murmur, thyroid disease. She wears glasses without acute visual loss and dentures. Otherwise, 14-point review of systems was unremarkable. PHYSICAL EXAMINATION: VITAL SIGNS: Blood pressure 119/45, pulse in the 60s and irregular. GENERAL: This is a pleasant elderly female who does not appear to be in any distress. Mood and affect appropriate. HEENT: The patient is wearing glasses. Extraocular muscles intact. Mucous membranes moist. NECK: Shows no jugular venous distention. There is a cardiac murmur radiate into the carotids bilaterally. CHEST: Reveals clear lung almanzar. CARDIOVASCULAR: Reveals an irregularly irregular rhythm that is rate controlled. There is a grade 3/6 systolic ejection murmur. I do not appreciate gallop. ABDOMEN: Reveals normal bowel sounds. The abdomen is soft and nontender. EXTREMITIES: Shows no significant edema. Peripheral pulses slightly diminished. SKIN: Warm and dry. IMPRESSION AND RECOMMENDATIONS: 1. Severe aortic stenosis, status post recent valvuloplasty. Would continue following clinically at this time. 2. Coronary artery disease. The patient is having some chest discomfort, although I doubt this is acute coronary syndrome as her troponins have been negative x 3 sets here. Would continue conservative management at this time. 3. Dyslipidemia. Continue current statin agent. 4. Hypertension, adequately controlled on current regimen. 5. Chronic atrial fibrillation, adequately rate controlled. She is chronically anticoagulated with Xarelto, [place] [address] CONSULTATION Name: ROSAREBELELISEO Room: [address]#: [id number] Admission: 10/10/18 Attend Phys: Nazanin Samaniego Discharge: Date of : 39 Report #: [id number] From a cardiac standpoint, the patient appears stable. We will follow as needed. <ELECTRONICALLY SIGNED> By: Sammy Murphy MD, FACC 10/14/18 1055 [id number] Murphy MD, FACC /nt
[2018-10-14 12:00] VITALS: BP 98/53
[2018-10-14 16:00] VITALS: BP 101/61
--- NOTE | 2018-10-14 18:03 | NUR ---
RECEIVED PT FROM MARGARITO MCCORMICK. PT A+O X 3 WITH BASELINE CONFUSION. PT VSS, CONTROLLED AFIB NOTED, PT REPORTED PAIN IN MID BACK- TREATED WITH TYLENOL. PT INCONTINENT OF BLADDER. PT LAST BM 10/13/18. HOURLY ROUNDING PERFORMED, UNEVENTFUL DAY FOR PT, AWAITING INSURANCE AUTHORIZATION FOR [facility].
[2018-10-14 20:00] VITALS: BP 106/48
[2018-10-15] VITALS: BP 123/56
[2018-10-15 04:00] VITALS: BP 104/59
--- NOTE | 2018-10-15 04:34 | NUR ---
ASSUMED CARE OF PT AFTER REPORT AT 1930. PT A&OX3. FORGETFUL. VSS. PHYSICAL ASSESSMENT COMPLETED AND CHARTED. PT ON O2 AT 2L NC. PT TRACING AFIB ON TELE. PT UP WITH 1 ASSIST. PT WITH EPISODES OF INCONTINENT BLADDER. PT DENIES ANY PAIN OR DISCOMFORT. CALL LIGHT WITHIN REACH.
[2018-10-15 08:00] VITALS: BP 122/59
--- NOTE | 2018-10-15 10:53 | NUR ---
COSME followed up with Ne in admissions at [facility] to check on status of referral and insurance authorization. Ne had not received auth as of yet and will need updated therapy notes. The therapy evals were sent by pt nurse on Sunday but follow up notes more recent are required. SW to fax updated notes when available as needed. SW to continue to follow to assist in finalizing safe dc plan and SNF placement at dc pending insurance auth.
[2018-10-15 12:00] VITALS: BP 105/62
--- NOTE | 2018-10-15 14:43 | NUR ---
WOUND CARE NOTE: CONSULT RECEIVED FOR OPEN SORES ON BOTTOM. UPON ASSESSMENT, DID NOT OBSERVE ANY LESIONS. SKIN INTACT. WILL SIGN OFF AT THIS TIME, PLEASE RECONSULT IF NEEDED
[2018-10-15 16:00] VITALS: BP 97/67
[2018-10-15 20:00] VITALS: BP 106/51
[2018-10-16] VITALS: BP 123/63
--- NOTE | 2018-10-16 07:29 | NUR ---
PATIENT SLEPT PART OF THE NIGHT. PATIENT WAS VOIDING ON THE BEDPAN ABOUT EVERY 30 MINUTES TO AN HOUR FOR THE FIRST PART OF THE SHIFT. IV REMAINS SALINE LOCKED. PATIENT IS POSSIBLY GOING TO [facility] TODAY. WILL CONTINUE TO MONITOR.
[2018-10-16 08:00] VITALS: BP 112/64
--- NOTE | 2018-10-16 10:12 | NUR ---
Pt is medically stable for dc. Spoke with Ne at [facility], per insurance they did not receive the referral that was sent over the weekend, CM faxed new referral. Continue to await insurance auth.
[2018-10-16 11:12] VITALS: BP 103/64
--- NOTE | 2018-10-16 13:37 | NUR ---
VSS, ASSUMED CARE IN THE AM, ASSESSMENT PERFORMED AND CHARTED, FALL PRECAUTIONS IN PLACE AND CALL LIGHT IN REACH, PT IS A&O3 AND SHE IS FORGETFUL, PT DENIES ANY PAIN AT THIS TIME, PT IS TRACING AFIB ON THE MONITOR AND HAS A MURMER, PT IS UP WITH ONE AND WALKER TO [facility], PT IS TO DISCHARGE TO [facility] TODAY AT 4 PM, I HAVE CALLED REPORT AND PROVITED CALL [facility] NUMBER TO NURSE GABBI, IV AND TELE MONITOR HAVE BEEN REMOVED AND HOURLY ROUNDS COMPLTETED, DISCHARGE PAPERS COMPLETED AND WILL FOLLOW WITH PLAN OF CARE.
[2018-10-16] MEDS ORDERED: CIPRO500 MG PO (14:08)
[2018-10-16 14:12] VITALS: BP 103/64
--- NOTE | 2018-10-16 16:43 | NUR ---
VSS, ASSUMED CARE IN THE AM, ASSESSMENT PERFORMED AND CHARTED, FALL PRECAUTIONS IN PLACE AND CALL LIGHT IN REACH, PT IS A&O2-3 SHE IS FORGETFUL AND IS ON RA, SHE DENIES ANY PAIN AND IS INCONT OF BLADDER, ID IS TRACING AFIB ON THE MONITOR, PT GOAL IS TO D/C TO [facility], IV AND TELE ,OMITOR REMOVED
== END 2018-10-16 16:30 | DRG 689 ==
LOC: M.ERS 10:32 → M.TBA-ER 11:55 → M.2W 11:55
PROVIDERS: Emergency Medicine Emergency Medical Services; ADMIT Internal Medicine
DX: N39.0 Urinary tract infection, site not specified (principal); G93.41 Metabolic encephalopathy; I50.32 Chronic diastolic (congestive) heart failure; E44.0 Moderate protein-calorie malnutrition; R07.9 Chest pain, unspecified; J20.9 Acute bronchitis, unspecified; M06.9 Rheumatoid arthritis, unspecified; E03.9 Hypothyroidism, unspecified; G31.84 Mild cognitive impairment of uncertain or unknown etiology; I35.0 Nonrheumatic aortic (valve) stenosis; K21.9 Gastro-esophageal reflux disease without esophagitis; Z96.652 Presence of left artificial knee joint; E83.51 Hypocalcemia; E83.42 Hypomagnesemia; I48.2 Chronic atrial fibrillation; I27.20 Pulmonary hypertension, unspecified; I11.0 Hypertensive heart disease with heart failure; E78.5 Hyperlipidemia, unspecified; I25.10 Atherosclerotic heart disease of native coronary artery without angina pectoris; Z88.1 Allergy status to other antibiotic agents; Z91.041 Radiographic dye allergy status; Z88.0 Allergy status to penicillin; Z91.013 Allergy to seafood; Z88.2 Allergy status to sulfonamides; Z88.8 Allergy status to other drugs, medicaments and biological substances; Z91.018 Allergy to other foods; Z79.899 Other long term (current) drug therapy; Z95.5 Presence of coronary angioplasty implant and graft; Z90.89 Acquired absence of other organs; Z90.49 Acquired absence of other specified parts of digestive tract; Z90.710 Acquired absence of both cervix and uterus; Z98.42 Cataract extraction status, left eye; Z98.41 Cataract extraction status, right eye; Z82.49 Family history of ischemic heart disease and other diseases of the circulatory system; Z81.8 Family history of other mental and behavioral disorders; Z80.0 Family history of malignant neoplasm of digestive organs; Z68.26 Body mass index [BMI] 26.0-26.9, adult; Z79.01 Long term (current) use of anticoagulants